=== PATIENT | female | born 1940 | race Caucasian/White ===

== ENCOUNTER 2022-05-13 16:04 | Inpatient (IN) | payer MEDICARE, OTHER ==
[~2022-05-13] VITALS: Ht 167.6 cm; Wt 59.0 kg
[2022-05-13] MEDS ORDERED: SODIUM CHLORIDE 0.9% 1000ML BAG (SEPSIS BOLUS) IV ONE (17:00)
[2022-05-13 17:39] LABS: BASOPHILS % 0.3 % (0.0-2.0); HEMOGLOBIN. 16.3 g/dL (12.0-16.0); LYMPHOCYTES % 7.8 % (20.0-50.0); MEAN CORPUSCULAR HEMOGLOBIN 31.3 pg (28.0-32.0); MEAN CORPUSCULAR VOLUME 99.7 fL (81.0-99.0); MEAN PLATELET VOLUME 12.5 fl (7.4-10.4); MONOCYTES % 3.4 % (2.0-8.0); NEUTROPHILS % 88.5 % (40.0-76.0); PLATELET 79 x1000/uL (130-400); RED BLOOD CELL COUNT 5.22 mill/uL (4.2-5.4); RED CELL DISTRIBUTION WIDTH 15.5 % (11.6-14.6)
[2022-05-13 18:01] LABS: CHLORIDE 137 mEq/L (98-107)
[2022-05-13] MEDS ORDERED: DEXT 5% WATER 500 ML IV ONE (19:15)
[2022-05-14 06:17] LABS: CLARITY URINE CLOUDY (CLEAR); COLOR URINE DARK YELLOW (YELLOW); KETONES URINE NEGATIVE (NEGATIVE); LEUKOCYTE ESTERASE URINE 3+ (NEGATIVE); NITRITE URINE POSITIVE (NEGATIVE); OCCULT BLOOD URINE 2+ (NEGATIVE); PH URINE 5.5 (4.5-8.0); PROTEIN URINE 1+ (NEGATIVE); SPECIFIC GRAVITY URINE 1.022 (1.005-1.030)
[2022-05-14] MEDS ORDERED: ONDANSETRON HCL 4MG/2ML INJ IV PRN (11:15)
[2022-05-14 12:00] VITALS: BP 105/65
[2022-05-14] MEDS: DEXTROSE 5% WATER 1,000 ML IV SCH (13:52)
[2022-05-14 14:01] VITALS: BP 105/65
[2022-05-14] MEDS ORDERED: PRAV20TA57 PO (14:17)
[2022-05-14] MEDS ORDERED: ALEN70TA79 MT (14:17)
[2022-05-14] MEDS ORDERED: QUET25TA36 PO (14:17)
[2022-05-14] MEDS ORDERED: DIVA-75 PO (14:17)
[2022-05-14] MEDS: CEFTRIAXONE 1,000 MG in DEXTROSE 5% WATER 50 ML IV SCH (14:29)
[2022-05-14 16:00] VITALS: BP 98/60
[2022-05-14 20:22] VITALS: BP 94/63
[2022-05-14] MEDS ORDERED: ZOLPIDEM TARTRATE 5MG TABLET PO PRN (23:45)
[2022-05-15] VITALS (7 sets, daily range): BP systolic 81–102; BP diastolic 46–59
[2022-05-15] MEDS: DEXTROSE 5% WATER 1,000 ML IV SCH ×2 (00:35→13:03)
[2022-05-15 07:06] LABS: BASOPHILS % 0.1 % (0.0-2.0); HEMATOCRIT. 41.3 % (36.0-48.0); LYMPHOCYTES % 10.3 % (20.0-50.0); MEAN CORPUSCULAR HEMOGLOBIN 31.6 pg (28.0-32.0); MEAN CORPUSCULAR VOLUME 100.5 fL (81.0-99.0); MEAN PLATELET VOLUME 12.7 fl (7.4-10.4); MONOCYTES % 4.6 % (2.0-8.0); PLATELET 52 x1000/uL (130-400); RED BLOOD CELL COUNT 4.11 mill/uL (4.2-5.4); RED CELL DISTRIBUTION WIDTH 15.4 % (11.6-14.6)
[2022-05-15 08:52] LABS: CHLORIDE 133 mEq/L (98-107)
[2022-05-15] MEDS ORDERED: POTASSIUM CHLORIDE 20MEQ/PACKET PO NR (11:45)
[2022-05-15] MEDS: CEFTRIAXONE 1,000 MG in DEXTROSE 5% WATER 50 ML IV SCH (13:02)
[2022-05-15] MEDS ORDERED: SODIUM CHLORIDE 0.45% 500 ML IV ONE (17:00)
[2022-05-16] MEDS: DEXTROSE 5% WATER 1,000 ML IV SCH ×2 (02:51→17:01)
[2022-05-16 04:00] VITALS: BP 92/46
[2022-05-16 05:56] LABS: BASOPHILS % 0.1 % (0.0-2.0); HEMATOCRIT. 37.2 % (36.0-48.0); HEMOGLOBIN. 11.9 g/dL (12.0-16.0); LYMPHOCYTES % 13.7 % (20.0-50.0); MEAN CORPUSCULAR HEMOGLOBIN 31.6 pg (28.0-32.0); MEAN CORPUSCULAR VOLUME 98.6 fL (81.0-99.0); MEAN PLATELET VOLUME 13.5 fl (7.4-10.4); MONOCYTES % 5.7 % (2.0-8.0); NEUTROPHILS % 80.5 % (40.0-76.0); PLATELET 55 x1000/uL (130-400); RED BLOOD CELL COUNT 3.77 mill/uL (4.2-5.4); RED CELL DISTRIBUTION WIDTH 15.2 % (11.6-14.6)
[2022-05-16 06:11] LABS: CHLORIDE 129 mEq/L (98-107)
[2022-05-16 08:00] VITALS: BP 102/62
[2022-05-16 12:00] VITALS: BP 108/54
[2022-05-16] MEDS: CEFTRIAXONE 1,000 MG in DEXTROSE 5% WATER 50 ML IV SCH (13:38)
[2022-05-16 16:00] VITALS: BP 116/60
[2022-05-16 20:00] VITALS: BP 99/58
[2022-05-17 00:05] VITALS: BP 97/50
[2022-05-17 04:00] VITALS: BP 93/47
[2022-05-17] MEDS: DEXTROSE 5% WATER 1,000 ML IV SCH ×2 (04:47→19:51)
[2022-05-17 08:03] LABS: BASOPHILS % 0.1 % (0.0-2.0); EOSINOPHILS % 0.1 % (0.0-5.0); HEMATOCRIT. 31.4 % (36.0-48.0); HEMOGLOBIN. 10.2 g/dL (12.0-16.0); LYMPHOCYTES % 21.2 % (20.0-50.0); MEAN CORPUSCULAR HEMOGLOBIN 32.6 pg (28.0-32.0); MONOCYTES % 5.6 % (2.0-8.0); PLATELET 56 x1000/uL (130-400); RED BLOOD CELL COUNT 3.14 mill/uL (4.2-5.4); RED CELL DISTRIBUTION WIDTH 15.3 % (11.6-14.6)
[2022-05-17 08:07] LABS: CHLORIDE 118 mEq/L (98-107)
[2022-05-17 12:00] VITALS: BP 90/40
[2022-05-17] MEDS: CEFTRIAXONE 1,000 MG in DEXTROSE 5% WATER 50 ML IV SCH (12:59)
[2022-05-17 16:00] VITALS: BP 90/42
[2022-05-17 20:05] VITALS: BP 99/58
[2022-05-18 00:05] VITALS: BP 98/51
[2022-05-18 04:00] VITALS: BP 117/68
[2022-05-18 07:28] LABS: CHLORIDE 112 mEq/L (98-107)
[2022-05-18 08:00] VITALS: BP 95/66
[2022-05-18] MEDS: DEXTROSE 5% WATER 1,000 ML IV SCH (08:36)
[2022-05-18 12:00] VITALS: BP 111/50
[2022-05-18] MEDS: CEFTRIAXONE 1,000 MG in DEXTROSE 5% WATER 50 ML IV SCH (12:36)
[2022-05-18] MEDS: SODIUM CHLORIDE 0.45% 1,000 ML IV SCH (12:36)
[2022-05-18 16:00] VITALS: BP 120/56
[2022-05-18 20:00] VITALS: BP 104/52
[2022-05-19] VITALS: BP 102/45
[2022-05-19 04:00] VITALS: BP 118/62
[2022-05-19] MEDS: SODIUM CHLORIDE 0.45% 1,000 ML IV SCH ×2 (05:01→15:04)
[2022-05-19 08:00] VITALS: BP 95/51
[2022-05-19 12:00] VITALS: BP 99/52
[2022-05-19] MEDS: CEFTRIAXONE 1,000 MG in DEXTROSE 5% WATER 50 ML IV SCH (15:03)
[2022-05-19 16:00] VITALS: BP 95/60
[2022-05-19 20:00] VITALS: BP 103/60
[2022-05-20] VITALS: BP 101/52
[2022-05-20 04:00] VITALS: BP 95/50
[2022-05-20] MEDS: SODIUM CHLORIDE 0.45% 1,000 ML IV SCH ×2 (04:31→17:25)
[2022-05-20 08:00] VITALS: BP 104/60
[2022-05-20 12:00] VITALS: BP 113/62
[2022-05-20 16:00] VITALS: BP 105/59
[2022-05-20 20:00] VITALS: BP 98/41
[2022-05-21] VITALS: BP 116/52
[2022-05-21] MEDS: SODIUM CHLORIDE 0.45% 1,000 ML IV SCH ×2 (06:33→20:19)
[2022-05-21 08:00] VITALS: BP 109/56
[2022-05-21] MEDS: DOCUSATE SODIUM 250MG CAPSULE PO SCH ×2 (09:35→16:24)
[2022-05-21 12:00] VITALS: BP 113/61
[2022-05-21 15:19] LABS: CHLORIDE 105 mEq/L (98-107)
[2022-05-21 15:20] LABS: HEMATOCRIT. 34.6 % (36.0-48.0); HEMOGLOBIN. 11.5 g/dL (12.0-16.0); MEAN CORPUSCULAR HEMOGLOBIN 31.9 pg (28.0-32.0); MEAN PLATELET VOLUME 10.5 fl (7.4-10.4); PLATELET 185 x1000/uL (130-400); RED CELL DISTRIBUTION WIDTH 14.6 % (11.6-14.6)
[2022-05-21 16:00] VITALS: BP 132/60
[2022-05-21 16:03] LABS: PLATELET ESTIMATE NORMAL
[2022-05-21 20:00] VITALS: BP 120/53
[2022-05-22] VITALS: BP 117/56
[2022-05-22 04:00] VITALS: BP 117/54
[2022-05-22 08:00] VITALS: BP 117/53
[2022-05-22] MEDS: SODIUM CHLORIDE 0.45% 1,000 ML IV SCH ×2 (10:33→22:27)
[2022-05-22] MEDS: DOCUSATE SODIUM 250MG CAPSULE PO SCH ×2 (10:33→17:00)
[2022-05-22 12:00] VITALS: BP 121/84
[2022-05-22 20:00] VITALS: BP 118/57
[2022-05-23] VITALS: BP 110/58
[2022-05-23 04:00] VITALS: BP 118/69
[2022-05-23 08:00] VITALS: BP_SYST 105; BP_SYST 95; BP_DIAS 49; BP_DIAS 62
[2022-05-23] MEDS: DOCUSATE SODIUM SUGAR FREE 100MG/10ML UDC PO SCH ×2 (09:45→19:37)
[2022-05-23 12:00] VITALS: BP 105/55
[2022-05-23] MEDS: SODIUM CHLORIDE 0.45% 1,000 ML IV SCH ×2 (12:30→20:00)
[2022-05-23 16:00] VITALS: BP 105/62
[2022-05-23 20:00] VITALS: BP 143/65
[2022-05-23] MEDS: ACETAMINOPHEN 325MG TABLET PO PRN (21:01)
[2022-05-24] VITALS: BP 108/54
[2022-05-24 04:00] VITALS: BP 100/52
[2022-05-24 08:00] VITALS: BP 94/52
[2022-05-24] MEDS: DOCUSATE SODIUM SUGAR FREE 100MG/10ML UDC PO SCH ×2 (09:12→17:00)
[2022-05-24 12:00] VITALS: BP 143/53
[2022-05-24] MEDS: SODIUM CHLORIDE 0.45% 1,000 ML IV SCH (15:10)
[2022-05-24 16:00] VITALS: BP 114/69
[2022-05-24 20:00] VITALS: BP 128/62
[2022-05-24] MEDS: ACETAMINOPHEN 325MG TABLET PO PRN (21:21)
[2022-05-25] VITALS: BP 108/52
[2022-05-25 04:00] VITALS: BP 98/55
[2022-05-25] MEDS: SODIUM CHLORIDE 0.45% 1,000 ML IV SCH ×2 (04:36→19:06)
[2022-05-25 08:00] VITALS: BP 104/51
[2022-05-25] MEDS: DOCUSATE SODIUM SUGAR FREE 100MG/10ML UDC PO SCH ×2 (09:46→17:44)
[2022-05-25 12:00] VITALS: BP 109/64
[2022-05-25 16:00] VITALS: BP 108/54
[2022-05-25 20:00] VITALS: BP 106/50
[2022-05-25] MEDS: ACETAMINOPHEN 325MG TABLET PO PRN (20:03)
[2022-05-26] VITALS: BP 97/50
[2022-05-26 04:00] VITALS: BP 99/52
[2022-05-26] MEDS: SODIUM CHLORIDE 0.45% 1,000 ML IV SCH ×2 (06:37→21:15)
[2022-05-26 08:00] VITALS: BP 125/59
[2022-05-26] MEDS: DOCUSATE SODIUM SUGAR FREE 100MG/10ML UDC PO SCH ×2 (08:43→16:54)
[2022-05-26] MEDS ORDERED: CEFTRIAXONE 1 G PREMIX 50 ML IV SCH (11:15)
[2022-05-26] MEDS ORDERED: SILVER NITRATE APPLICATOR STICK TOP SCH (11:30)
[2022-05-26 12:00] VITALS: BP 114/58
[2022-05-26] MEDS: CEFTRIAXONE 1,000 MG in DEXTROSE 5% WATER 50 ML IV SCH (13:56)
[2022-05-26 14:55] LABS: CLARITY URINE CLOUDY (CLEAR); COLOR URINE DARK YELLOW (YELLOW); KETONES URINE NEGATIVE (NEGATIVE); LEUKOCYTE ESTERASE URINE 1+ (NEGATIVE); NITRITE URINE NEGATIVE (NEGATIVE); OCCULT BLOOD URINE 1+ (NEGATIVE); PROTEIN URINE TRACE (NEGATIVE); SPECIFIC GRAVITY URINE 1.019 (1.005-1.030)
[2022-05-26 16:00] VITALS: BP 139/61
[2022-05-26 16:04] LABS: HEMATOCRIT. 33.3 % (36.0-48.0); HEMOGLOBIN. 10.7 g/dL (12.0-16.0); MEAN CORPUSCULAR HEMOGLOBIN 31.8 pg (28.0-32.0); MEAN CORPUSCULAR VOLUME 98.8 fL (81.0-99.0); MEAN PLATELET VOLUME 8.7 fl (7.4-10.4); PLATELET 272 x1000/uL (130-400); RED BLOOD CELL COUNT 3.37 mill/uL (4.2-5.4); RED CELL DISTRIBUTION WIDTH 15.6 % (11.6-14.6)
[2022-05-26 16:35] LABS: CHLORIDE 106 mEq/L (98-107)
[2022-05-26 20:00] VITALS: BP 103/50
[2022-05-26 21:39] LABS: PLATELET ESTIMATE NORMAL
[2022-05-27] VITALS: BP 119/59
[2022-05-27 04:00] VITALS: BP 106/60
[2022-05-27 08:00] VITALS: BP 163/67
[2022-05-27] MEDS: DOCUSATE SODIUM SUGAR FREE 100MG/10ML UDC PO SCH ×2 (09:00→17:00)
[2022-05-27] MEDS: SODIUM CHLORIDE 0.45% 1,000 ML IV SCH (09:50)
[2022-05-27 12:00] VITALS: BP 134/59
[2022-05-27] MEDS: CEFTRIAXONE 1,000 MG in DEXTROSE 5% WATER 50 ML IV SCH (13:27)
[2022-05-27 16:00] VITALS: BP 116/60
[2022-05-27 16:16] LABS: HEMATOCRIT. 30.5 % (36.0-48.0); HEMOGLOBIN. 10.1 g/dL (12.0-16.0); MEAN CORPUSCULAR HEMOGLOBIN 31.7 pg (28.0-32.0); MEAN CORPUSCULAR VOLUME 96.1 fL (81.0-99.0); MEAN PLATELET VOLUME 8.8 fl (7.4-10.4); PLATELET 233 x1000/uL (130-400); RED BLOOD CELL COUNT 3.17 mill/uL (4.2-5.4); RED CELL DISTRIBUTION WIDTH 15.1 % (11.6-14.6)
[2022-05-27 17:12] LABS: CHLORIDE 107 mEq/L (98-107)
[2022-05-27 17:56] LABS: PLATELET ESTIMATE NORMAL
[2022-05-27 20:00] VITALS: BP 119/61
[2022-05-28] VITALS: BP 106/55
[2022-05-28 04:00] VITALS: BP 110/54
[2022-05-28 08:00] VITALS: BP 102/43
[2022-05-28] MEDS: DOCUSATE SODIUM SUGAR FREE 100MG/10ML UDC PO SCH ×2 (09:15→17:00)
[2022-05-28 12:00] VITALS: BP 110/56
[2022-05-28] MEDS: CEFTRIAXONE 1,000 MG in DEXTROSE 5% WATER 50 ML IV SCH (12:30)
[2022-05-28] MEDS: SODIUM CHLORIDE 0.45% 1,000 ML IV SCH ×2 (12:30)
[2022-05-28 16:00] VITALS: BP 122/97
[2022-05-28 17:53] LABS: HEMATOCRIT. 33.8 % (36.0-48.0); HEMOGLOBIN. 10.5 g/dL (12.0-16.0); MEAN CORPUSCULAR HEMOGLOBIN 30.7 pg (28.0-32.0); MEAN CORPUSCULAR VOLUME 98.6 fL (81.0-99.0); MEAN PLATELET VOLUME 8.9 fl (7.4-10.4); PLATELET 247 x1000/uL (130-400); RED BLOOD CELL COUNT 3.43 mill/uL (4.2-5.4); RED CELL DISTRIBUTION WIDTH 15.9 % (11.6-14.6)
[2022-05-28 18:08] LABS: CHLORIDE 105 mEq/L (98-107)
[2022-05-28 18:20] LABS: PLATELET ESTIMATE NORMAL
[2022-05-28 20:00] VITALS: BP 104/59
[2022-05-29] VITALS: BP 117/65
[2022-05-29] MEDS: SODIUM CHLORIDE 0.45% 1,000 ML IV SCH ×2 (01:50→15:27)
[2022-05-29 04:00] VITALS: BP 120/76
[2022-05-29 08:14] VITALS: BP 133/64
[2022-05-29] MEDS: DOCUSATE SODIUM SUGAR FREE 100MG/10ML UDC PO SCH ×2 (09:03→17:00)
[2022-05-29] MEDS: SODIUM HYPOCHLORITE (0.25%) 480ML SOLUTION (HALF STRENGTH) TOP SCH (09:04)
[2022-05-29 12:00] VITALS: BP 100/58
[2022-05-29] MEDS: CEFTRIAXONE 1,000 MG in DEXTROSE 5% WATER 50 ML IV SCH (14:29)
[2022-05-29 16:00] VITALS: BP 114/54
[2022-05-29 20:00] VITALS: BP 111/66
[2022-05-30] VITALS: BP 104/78
[2022-05-30 04:00] VITALS: BP 119/63
[2022-05-30] MEDS: SODIUM CHLORIDE 0.45% 1,000 ML IV SCH (04:30)
[2022-05-30 08:00] VITALS: BP 103/58
[2022-05-30] MEDS: SODIUM HYPOCHLORITE (0.25%) 480ML SOLUTION (HALF STRENGTH) TOP SCH (10:19)
[2022-05-30] MEDS: ACETAMINOPHEN 325MG TABLET PO PRN (10:20)
[2022-05-30] MEDS: DOCUSATE SODIUM SUGAR FREE 100MG/10ML UDC PO SCH (10:20)
[2022-05-30 12:00] VITALS: BP 113/60
[2022-05-30] MEDS: CEFTRIAXONE 1,000 MG in DEXTROSE 5% WATER 50 ML IV SCH (14:17)
[2022-05-30 16:00] VITALS: BP 105/56
[2022-05-30 20:00] VITALS: BP 124/65
[2022-05-31] VITALS: BP 145/50
[2022-05-31 04:00] VITALS: BP 90/50
[2022-05-31] MEDS: SODIUM CHLORIDE 0.45% 1,000 ML IV SCH ×2 (07:10→09:27)
[2022-05-31 08:00] VITALS: BP 129/57
[2022-05-31] MEDS: SODIUM HYPOCHLORITE (0.25%) 480ML SOLUTION (HALF STRENGTH) TOP SCH (09:00)
[2022-05-31] MEDS: DOCUSATE SODIUM SUGAR FREE 100MG/10ML UDC PO SCH (09:27)
[2022-05-31 12:00] VITALS: BP 110/55
[2022-05-31 16:00] VITALS: BP 115/60
[2022-05-31 20:00] VITALS: BP 152/71
[2022-06-01] VITALS: BP 104/59
[2022-06-01 04:00] VITALS: BP 139/65
[2022-06-01 08:00] VITALS: BP 147/61
[2022-06-01] MEDS: DOCUSATE SODIUM SUGAR FREE 100MG/10ML UDC PO SCH ×2 (09:00→17:58)
[2022-06-01] MEDS: SODIUM CHLORIDE 0.45% 1,000 ML IV SCH ×2 (11:13→23:10)
[2022-06-01] MEDS: SODIUM HYPOCHLORITE (0.25%) 480ML SOLUTION (HALF STRENGTH) TOP SCH (11:19)
[2022-06-01 12:00] VITALS: BP 114/57
[2022-06-01 12:39] LABS: BASOPHILS % 0.2 % (0.0-2.0); EOSINOPHILS % 0.1 % (0.0-5.0); HEMATOCRIT. 28.2 % (36.0-48.0); HEMOGLOBIN. 9.4 g/dL (12.0-16.0); LYMPHOCYTES % 7.4 % (20.0-50.0); MEAN CORPUSCULAR HEMOGLOBIN 30.8 pg (28.0-32.0); MEAN CORPUSCULAR VOLUME 92.8 fL (81.0-99.0); MEAN PLATELET VOLUME 8.8 fl (7.4-10.4); MONOCYTES % 7.3 % (2.0-8.0); PLATELET 221 x1000/uL (130-400); RED BLOOD CELL COUNT 3.04 mill/uL (4.2-5.4); RED CELL DISTRIBUTION WIDTH 15.2 % (11.6-14.6)
[2022-06-01 13:03] LABS: CHLORIDE 103 mEq/L (98-107)
[2022-06-01] MEDS ORDERED: POTASSIUM CHLORIDE 20MEQ TABLET SR PO NR (14:45)
[2022-06-01 16:00] VITALS: BP 117/56
[2022-06-01 20:00] VITALS: BP 130/66
[2022-06-02] VITALS: BP 126/56
[2022-06-02 04:00] VITALS: BP 126/59
[2022-06-02 09:00] VITALS: BP 110/51
[2022-06-02] MEDS: METOPROLOL TARTRATE 25MG TABLET PO SCH ×2 (09:00→18:29)
[2022-06-02] MEDS: DOCUSATE SODIUM SUGAR FREE 100MG/10ML UDC PO SCH ×2 (09:56→18:30)
[2022-06-02] MEDS: SODIUM HYPOCHLORITE (0.25%) 480ML SOLUTION (HALF STRENGTH) TOP SCH (09:57)
[2022-06-02 12:00] VITALS: BP 117/69
[2022-06-02] MEDS: SODIUM CHLORIDE 0.45% 1,000 ML IV SCH (13:10)
[2022-06-02 13:13] LABS: BASOPHILS % 0.1 % (0.0-2.0); HEMATOCRIT. 33.7 % (36.0-48.0); HEMOGLOBIN. 10.8 g/dL (12.0-16.0); MEAN CORPUSCULAR HEMOGLOBIN 30.7 pg (28.0-32.0); MEAN PLATELET VOLUME 8.8 fl (7.4-10.4); MONOCYTES % 6.6 % (2.0-8.0); NEUTROPHILS % 85.3 % (40.0-76.0); PLATELET 249 x1000/uL (130-400); RED CELL DISTRIBUTION WIDTH 15.4 % (11.6-14.6)
[2022-06-02 13:45] LABS: CHLORIDE 101 mEq/L (98-107)
[2022-06-02 16:00] VITALS: BP 135/51
[2022-06-02 20:00] VITALS: BP 123/76
[2022-06-03] VITALS: BP 105/58
[2022-06-03] MEDS: SODIUM CHLORIDE 0.45% 1,000 ML IV SCH (02:16)
== END 2022-06-03 02:38 | DRG 710 ==
LOC: ER 16:04 → MICUSO 19:13 → EDBEDREQTM 19:14 → EDBEDREQ 19:14 → 7WST 05-14 11:14 → 6EST 05-19 11:42 → 8WST 06-02 08:52
PROVIDERS: ADMIT Internal Medicine; ATTEND Internal Medicine
PROC: 0JBN0ZZ Excision of Right Lower Leg Subcutaneous Tissue and Fascia, Open Approach (ICD-10-PCS; principal; 2022-05-22)
PROC: 0LBN0ZZ Excision of Right Lower Leg Tendon, Open Approach (ICD-10-PCS; 2022-05-26)
PROC: 0JBP0ZZ Excision of Left Lower Leg Subcutaneous Tissue and Fascia, Open Approach (ICD-10-PCS; 2022-05-26)
DX: A41.51 Sepsis due to Escherichia coli [E. coli] (principal); G93.41 Metabolic encephalopathy; L89.223 Pressure ulcer of left hip, stage 3; D69.6 Thrombocytopenia, unspecified; E87.0 Hyperosmolality and hypernatremia; E44.0 Moderate protein-calorie malnutrition; E86.0 Dehydration; R62.7 Adult failure to thrive; F03.90 Unspecified dementia, unspecified severity, without behavioral disturbance, psychotic disturbance, mood disturbance, and anxiety; N39.0 Urinary tract infection, site not specified; Z20.822 Contact with and (suspected) exposure to COVID-19; Z66 Do not resuscitate; S81.819A Laceration without foreign body, unspecified lower leg, initial encounter; X58.XXXA Exposure to other specified factors, initial encounter; Y93.89 Activity, other specified; Y92.89 Other specified places as the place of occurrence of the external cause; Y99.8 Other external cause status; Z68.21 Body mass index [BMI] 21.0-21.9, adult
CPT/HCPCS: 36415; 70551; 71045; 74176; 74230; 80048; 80053; 81003; 82040; 82962; 83036; 83605; 83880; 83930; 84134; 84145; 84484; 85025; 87077; 87186; 87426; 87804; 92610; 92611; 93005; 97110; 97161; 97165; 97530; 99285; C1893; J0696; J7030; J7060; J7070